=== PATIENT | male | born 1950 | race Caucasian/White ===

== ENCOUNTER 2017-08-09 15:55 | Emergency (ER) | payer OTHER, MEDICARE ==
[~2017-08-09] VITALS: Ht 185.4 cm; Wt 95.0 kg
[~2017-08-09 15:55] MED LIST: MULT-506 PO; PRED1SUS3 OPR; SILD100T PO; SNM/25100 PO
[2017-08-09 16:11] VITALS: Ht 185.4 cm; Wt 95.0 kg
[2017-08-09] MEDS ORDERED: SODIUM CHLORIDE 0.9% 1000ML 1,000 ML IV STA (16:26)
[2017-08-09 16:32] VITALS: O2SAT 97
[2017-08-09 16:38] LABS: BASO % 0.9 %; BASO ABS # 0.06 K/uL (0-0.2); EOS % 1.1 %; EOS ABS # 0.07 K/uL (0-0.5); HEMATOCRIT 43.1 % (42-52); HEMOGLOBIN 14.7 g/dL (14.0-18.0); IG# 0.01 K/uL (0.00-0.02); LYMPH % 21.4 %; LYMPH ABS # 1.36 K/uL (1.2-3.4); MEAN CELL VOLUME 91.5 fL (80-100); MEAN CORPUSCULAR HEMOGLOBIN 31.2 pg (25-34); MEAN CORPUSCULAR HGB CONC 34.1 g/dl (32-36); MEAN PLATELET VOLUME 9.9 fL (7.4-10.4); MONO % 7.1 %; MONO ABS # 0.45 K/uL (0.11-0.59); NEUT % 69.3 %; NEUT ABS # 4.42 K/uL (1.4-6.5); PLATELET COUNT 261 K/uL (130-400); RED CELL DISTRIBUTION WIDTH CV 12.9 % (11.5-14.5); RED CELL DISTRIBUTION WIDTH SD 43.2 fL (36.4-46.3); WHITE BLOOD COUNT 6.37 K/uL (4.8-10.8)
--- NOTE | 2017-08-09 17:11 | DIAGNOSTIC IMAGING REPORT ---
HEAD WITHOUT CONTRAST (CT) CLINICAL HISTORY: 66 years-old Male presenting with confusion, possible overdose. TECHNIQUE: Multidetector CT imaging of the head was performed without the use of intravenous contrast. IV contrast: None. A dose lowering technique was used consistent with the principles of ALARA (as low as reasonably achievable). COMPARISON: None. CT DOSE (mGy.cm): The estimated cumulative dose is 724.83 mGy.cm. 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 Proportional ventricular and sulcal prominence, likely age-related parenchymal volume loss. Brain parenchyma normal in appearance with preserved egan-white differentiation. No mass effect or midline shift. No hemorrhage or acute territorial infarct. No extra-axial fluid collection. Paranasal sinuses and mastoid air cells clear. Calvarium intact. IMPRESSION: 1. No acute intracranial abnormality. Electronically signed by: King Ryan M.D. 08/09/2017 5:10 PM Dictated Date/Time: 08/09/2017 5:09 PM
[2017-08-09 17:24] LABS: ALBUMIN 3.9 gm/dl (3.4-5.0); ALT/SGPT 8 U/L (12-78); BLOOD UREA NITROGEN 28 mg/dl (7-18); CALCIUM 8.9 mg/dl (8.5-10.1); CARBON DIOXIDE 31 mmol/L (21-32); CREATININE 0.91 mg/dl (0.60-1.40); GLUCOSE 113 mg/dl (70-99); LIPASE 131 U/L (73-393); POTASSIUM 4.1 mmol/L (3.5-5.1); SODIUM 137 mmol/L (136-145)
[2017-08-09 17:35] LABS: ALKALINE PHOSPHATASE 62 U/L (45-117); AST/SGOT 13 U/L (15-37); TOTAL PROTEIN 6.4 gm/dl (6.4-8.2)
--- NOTE | 2017-08-09 17:36 | DIAGNOSTIC IMAGING REPORT ---
ABDOMEN 2VIEW W/PA CHEST RTN CLINICAL HISTORY: 66 years-old Male presenting with ingestion, vomiting. TECHNIQUE: PA view of the chest and supine and left lateral decubitus views of the abdomen were obtained. COMPARISON: None. FINDINGS: Atherosclerosis of the aortic arch. Cardiac silhouette normal in size. Minimal left basilar opacity. No other focal opacity. No large effusion or pneumothorax. Nonobstructive bowel gas pattern. Moderate stool burden throughout the colon. Marked stool burden in the rectum. No gross pneumoperitoneum. Evaluation of the renal shadows for calculi is limited in the presence of such large stool burden. Degenerative changes of the spine. IMPRESSION: 1. No acute cardiopulmonary disease. 2. Stool burden consistent with constipation. No bowel obstruction or free air. Electronically signed by: King Ryan M.D. 08/09/2017 5:35 PM Dictated Date/Time: 08/09/2017 5:32 PM
[2017-08-09] MEDS ORDERED: OPTIRAY 320 IV PRN (18:30)
--- NOTE | 2017-08-09 19:07 | DIAGNOSTIC IMAGING REPORT ---
ABD/PELVIS IV CONTRAST ONLY CLINICAL HISTORY: 66 years-old Male presenting with n/v. TECHNIQUE: Multidetector CT of the abdomen and pelvis was performed after the administration of intravenous contrast. IV contrast: 93 mL of Optiray 320. A dose lowering technique was used consistent with the principles of ALARA (as low as reasonably achievable). COMPARISON: None. CT DOSE (mGy.cm): The estimated cumulative dose is 596.06 mGy.cm. 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 Image quality is degraded by positioning of the arms at the patient's sides. Lung bases: Patchy groundglass opacities at the lung bases. Mild smooth interlobular septal thickening. Normal heart size. No pericardial or pleural effusion. Liver: Normal morphology. Multiple well-defined hypodense liver lesions, indeterminate but possibly hepatic cysts or hamartomas. Patent hepatic vasculature. Biliary: No intrahepatic or extrahepatic biliary ductal dilatation. Normal gallbladder. Pancreas: Normal. Spleen: Normal. Adrenal glands: Normal. Kidneys and ureters: Normal. No hydronephrosis. Evaluation of the mid to distal ureters limited. Bladder: Normal. Pelvic organs: Prostate enlargement likely secondary to benign prostatic hyperplasia. Bowel: Moderate stool burden throughout normal caliber colon. Limited diverticulosis of the proximal sigmoid and descending colon. Motion artifact in the upper abdomen degrades evaluation. The appendix is normal. No bowel obstruction. Mild thickening of the gastric antrum suggested. No perigastric inflammatory change. Peritoneal cavity: No free fluid or intraperitoneal gas. Lymph nodes: No enlarged lymph nodes in the abdomen or pelvis. Vasculature: Atherosclerosis of the normal caliber abdominal aorta. IVC patent. Abdominal wall: Small fat-containing umbilical hernia. Musculoskeletal: Degenerative changes of the spine. Osteopenia. Anterior vertebral body height loss of T12 as well as anterior vertebral body height loss and superior endplate concavity of L3. IMPRESSION: 1. Moderate stool burden consistent with constipation. 2. Thickening of the gastric antrum suggests mild gastritis. 3. Patchy groundglass opacities at the lung bases with mild smooth interlobular septal thickening. This could represent developing pulmonary edema or an infectious or inflammatory etiology. 4. Multiple well-defined hypodense liver lesions, which are indeterminate but may represent hepatic cysts or hamartomas. 5. Deformities of T12 and L3, age indeterminate compression fractures. Correlate with point tenderness. 6. Osteopenia. Electronically signed by: King Ryan M.D. 08/09/2017 7:06 PM Dictated Date/Time: 08/09/2017 7:00 PM
[2017-08-09] MEDS ORDERED: CEFTRIAXONE SOD INJ 1 GM ADDVIAL IV STA (20:12)
[2017-08-09] MEDS ORDERED: AZITHROMYCIN 250 MG TAB PO ONE (20:15)
--- NOTE | 2017-08-09 21:07 | DIAGNOSTIC IMAGING REPORT ---
THORACIC SPINE 3 VIEWS ROUTINE CLINICAL HISTORY: 66 years-old Male presenting with fall, pain. TECHNIQUE: 3 views of the thoracic spine were obtained. COMPARISON: None. FINDINGS: Dextrocurvature of the thoracic spine. Osteopenia suspected. Scoliotic curvature limits evaluation for vertebral body height loss. Allowing for this, vertebral body height loss suspected at T8. The compression deformity evident at T12 on CT is not well demonstrated on the current radiographs. Remaining vertebral bodies demonstrate normal height and alignment. Intervertebral disc spaces grossly maintained. Visualized portion of the thorax within normal limits apart from atherosclerosis. IMPRESSION: 1. Allowing for dextroscoliotic curvature of the thoracic spine, suggestion of vertebral body height loss at T8 with osteopenia. This could potentially represent an age-indeterminate compression deformity. 2. Compression deformity at T12 is not well demonstrated on the current radiographs. Electronically signed by: King Ryan M.D. 08/09/2017 9:06 PM Dictated Date/Time: 08/09/2017 9:02 PM
--- NOTE | 2017-08-09 21:35 | EMERGENCY ROOM VISIT NOTE ---
History Report prepared by Violeta: Krystle Grullon Under the Supervision of: Dr. Delphine Silva D.O. First contact with patient: 16:03 Chief Complaint: OVERDOSE (ACCIDENTAL) Stated Complaint: OVERDOSE History of Present Illness The patient is a 66 year old male who presents to the Emergency Room with complaints of a possible accidental overdose between 3-6 hours ago. The patient presents to the ED by EMS. He vomited multiple times in route. He was given Zofran in route. The patient's states that she had gone upstairs and left the patient alone from 1000 to 1330 today. At 1330, she noticed that 25 carbidopa-levodopa pills were missing. He normally takes 1.5 pills 6 times a day. She searched the house for the pills, but was unable to find them. She then noticed that the patient seemed more confused and his speech was changed. The patient is unsure what happened to the pills and does not recall taking them. He denies any headache, chest pain, abdominal pain, SOB, nausea, urinary symptoms, or change in bowel movement. He was not sick or vomiting this morning. The patient was diagnosed with Parkinson's disease in 2014. Source of History: patient, spouse/significant other, EMS Onset: 3-6 hours ago Position: other (global) Symptom Intensity: 25 carbidopa-levodopa pills Quality: other (accidental overdose) Timing: other (episodic) Associated Symptoms: + vomiting, No headache, No chest pain, No SOB, No nausea, No abdominal pain, No urinary symptoms Review of Systems See HPI for pertinent positives & negatives. A total of 10 systems reviewed and were otherwise negative. Past Medical & Surgical Medical Problems: (1) Parkinson's disease Family History No pertinent family history stated. Social History Smoking Status: Never Smoker Marital Status: Housing Status: lives with significant other Occupation Status: retired Current/Historical Medications Scheduled Azithromycin (Zithromax), 250 MG PO DAILY Levodopa/Carbidopa (Sinemet 25MG/100MG), 1.5 TABS PO TID Multivitamin (Multivitamin), 1 TAB PO QAM Allergies Coded Allergies: Penicillins (Verified Allergy, Unknown, RASH, 01/30/16) Physical Exam Vital Signs Date Time Temp Pulse Resp B/P (MAP) Pulse Ox O2 Delivery O2 Flow Rate FiO2 08/10/17 00:20 36.7 85 19 126/78 93 08/10/17 00:20 62 121/73 95 08/09/17 22:33 85 126/78 93 Room Air 08/09/17 20:36 59 97 08/09/17 20:31 129/78 08/09/17 20:14 60 99 08/09/17 20:00 129/93 08/09/17 19:44 84 19 99 08/09/17 19:43 91 08/09/17 19:42 153/95 08/09/17 19:42 82 17 153/95 99 Room Air 08/09/17 18:44 49 21 137/83 99 08/09/17 18:43 48 18 137/83 99 Room Air 08/09/17 18:39 49 19 99 08/09/17 18:09 48 13 99 08/09/17 18:04 131/74 99 08/09/17 16:32 97 Room Air 08/09/17 16:25 47 17 08/09/17 16:15 54 08/09/17 16:11 36.7 51 18 118/72 97 Room Air 08/09/17 16:03 118/72 99 Physical Exam GENERAL: alert, well appearing, well nourished, no distress, non-toxic EYE EXAM: normal conjunctiva, PERRL and EOM's grossly intact OROPHARYNX: no exudate, no erythema, lips, buccal mucosa, and tongue normal and mucous membranes are moist NECK: supple, no nuchal rigidity, no adenopathy, non-tender LUNGS: Clear to auscultation. Normal chest wall mechanics HEART: regular, but bradycardic. No murmurs, S1 normal and S2 normal ABDOMEN: abdomen soft, non-tender, normo-active bowel sounds, no masses, no rebound or guarding. BACK: Back is symmetrical on inspection and there is no deformity, no midline tenderness, no CVA tenderness. SKIN: no rashes and no bruising UPPER EXTREMITIES: upper extremities are grossly normal. LOWER EXTREMITIES: No pitting edema. NEURO EXAM: Oriented, but confused regarding recent events. Poor short term memory recall. Occasional slurring of words. No gross weakness of arms, no gross weakness of legs. No ataxia. No facial droop. Medical Decision & Procedures ER Provider Diagnostic Interpretation: Xray results have been interpreted by the radiologist and by me. Radiology results have been interpreted by the radiologist and reviewed by me. ABDOMEN 2VIEW W/PA CHEST RTN CLINICAL HISTORY: 66 years-old Male presenting with ingestion, vomiting. TECHNIQUE: PA view of the chest and supine and left lateral decubitus views of the abdomen were obtained. COMPARISON: None. FINDINGS: Atherosclerosis of the aortic arch. Cardiac silhouette normal in size. Minimal left basilar opacity. No other focal opacity. No large effusion or pneumothorax. Nonobstructive bowel gas pattern. Moderate stool burden throughout the colon. Marked stool burden in the rectum. No gross pneumoperitoneum. Evaluation of the renal shadows for calculi is limited in the presence of such large stool burden. Degenerative changes of the spine. IMPRESSION: 1. No acute cardiopulmonary disease. 2. Stool burden consistent with constipation. No bowel obstruction or free air. Electronically signed by: King Ryan M.D. 08/09/2017 5:35 PM Dictated Date/Time: 08/09/2017 5:32 PM THORACIC SPINE 3 VIEWS ROUTINE CLINICAL HISTORY: 66 years-old Male presenting with fall, pain. TECHNIQUE: 3 views of the thoracic spine were obtained. COMPARISON: None. FINDINGS: Dextrocurvature of the thoracic spine. Osteopenia suspected. Scoliotic curvature limits evaluation for vertebral body height loss. Allowing for this, vertebral body height loss suspected at T8. The compression deformity evident at T12 on CT is not well demonstrated on the current radiographs. Remaining vertebral bodies demonstrate normal height and alignment. Intervertebral disc spaces grossly maintained. Visualized portion of the thorax within normal limits apart from atherosclerosis. IMPRESSION: 1. Allowing for dextroscoliotic curvature of the thoracic spine, suggestion of vertebral body height loss at T8 with osteopenia. This could potentially represent an age-indeterminate compression deformity. 2. Compression deformity at T12 is not well demonstrated on the current radiographs. Electronically signed by: King Ryan M.D. 08/09/2017 9:06 PM Dictated Date/Time: 08/09/2017 9:02 PM HEAD WITHOUT CONTRAST (CT) CLINICAL HISTORY: 66 years-old Male presenting with confusion, possible overdose. TECHNIQUE: Multidetector CT imaging of the head was performed without the use of intravenous contrast. IV contrast: None. A dose lowering technique was used consistent with the principles of ALARA (as low as reasonably achievable). COMPARISON: None. CT DOSE (mGy.cm): The estimated cumulative dose is 724.83 mGy.cm. 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 Proportional ventricular and sulcal prominence, likely age-related parenchymal volume loss. Brain parenchyma normal in appearance with preserved egan-white differentiation. No mass effect or midline shift. No hemorrhage or acute territorial infarct. No extra-axial fluid collection. Paranasal sinuses and mastoid air cells clear. Calvarium intact. IMPRESSION: 1. No acute intracranial abnormality. Electronically signed by: King Ryan M.D. 08/09/2017 5:10 PM Dictated Date/Time: 08/09/2017 5:09 PM ABD/PELVIS IV CONTRAST ONLY CLINICAL HISTORY: 66 years-old Male presenting with n/v. TECHNIQUE: Multidetector CT of the abdomen and pelvis was performed after the administration of intravenous contrast. IV contrast: 93 mL of Optiray 320. A dose lowering technique was used consistent with the principles of ALARA (as low as reasonably achievable). COMPARISON: None. CT DOSE (mGy.cm): The estimated cumulative dose is 596.06 mGy.cm. 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 Image quality is degraded by positioning of the arms at the patient's sides. Lung bases: Patchy groundglass opacities at the lung bases. Mild smooth interlobular septal thickening. Normal heart size. No pericardial or pleural effusion. Liver: Normal morphology. Multiple well-defined hypodense liver lesions, indeterminate but possibly hepatic cysts or hamartomas. Patent hepatic vasculature. Biliary: No intrahepatic or extrahepatic biliary ductal dilatation. Normal gallbladder. Pancreas: Normal. Spleen: Normal. Adrenal glands: Normal. Kidneys and ureters: Normal. No hydronephrosis. Evaluation of the mid to distal ureters limited. Bladder: Normal. Pelvic organs: Prostate enlargement likely secondary to benign prostatic hyperplasia. Bowel: Moderate stool burden throughout normal caliber colon. Limited diverticulosis of the proximal sigmoid and descending colon. Motion artifact in the upper abdomen degrades evaluation. The appendix is normal. No bowel obstruction. Mild thickening of the gastric antrum suggested. No perigastric inflammatory change. Peritoneal cavity: No free fluid or intraperitoneal gas. Lymph nodes: No enlarged lymph nodes in the abdomen or pelvis. Vasculature: Atherosclerosis of the normal caliber abdominal aorta. IVC patent. Abdominal wall: Small fat-containing umbilical hernia. Musculoskeletal: Degenerative changes of the spine. Osteopenia. Anterior vertebral body height loss of T12 as well as anterior vertebral body height loss and superior endplate concavity of L3. IMPRESSION: 1. Moderate stool burden consistent with constipation. 2. Thickening of the gastric antrum suggests mild gastritis. 3. Patchy groundglass opacities at the lung bases with mild smooth interlobular septal thickening. This could represent developing pulmonary edema or an infectious or inflammatory etiology. 4. Multiple well-defined hypodense liver lesions, which are indeterminate but may represent hepatic cysts or hamartomas. 5. Deformities of T12 and L3, age indeterminate compression fractures. Correlate with point tenderness. 6. Osteopenia. Electronically signed by: King Ryan M.D. 08/09/2017 7:06 PM Dictated Date/Time: 08/09/2017 7:00 PM Laboratory Results 08/09/17 16:30 Red Blood Count 4.71, Mean Corpuscular Volume 91.5, Mean Corpuscular Hemoglobin 31.2, Mean Corpuscular Hemoglobin Concent 34.1, Mean Platelet Volume 9.9, Neutrophils (%) (Auto) 69.3, Lymphocytes (%) (Auto) 21.4, Monocytes (%) (Auto) 7.1, Eosinophils (%) (Auto) 1.1, Basophils (%) (Auto) 0.9, Neutrophils # (Auto) 4.42, Lymphocytes # (Auto) 1.36, Monocytes # (Auto) 0.45, Eosinophils # (Auto) 0.07, Basophils # (Auto) 0.06 08/09/17 16:39 Test 08/09/17 16:30 08/09/17 16:39 08/09/17 17:40 08/09/17 22:50 White Blood Count 6.37 K/uL (4.8-10.8) Red Blood Count 4.71 M/uL (4.7-6.1) Hemoglobin 14.7 g/dL (14.0-18.0) Hematocrit 43.1 % (42-52) Mean Corpuscular Volume 91.5 fL (80-100) Mean Corpuscular Hemoglobin 31.2 pg (25-34) Mean Corpuscular Hemoglobin Concent 34.1 g/dl (32-36) Platelet Count 261 K/uL (130-400) Mean Platelet Volume 9.9 fL (7.4-10.4) Neutrophils (%) (Auto) 69.3 % Lymphocytes (%) (Auto) 21.4 % Monocytes (%) (Auto) 7.1 % Eosinophils (%) (Auto) 1.1 % Basophils (%) (Auto) 0.9 % Neutrophils # (Auto) 4.42 K/uL (1.4-6.5) Lymphocytes # (Auto) 1.36 K/uL (1.2-3.4) Monocytes # (Auto) 0.45 K/uL (0.11-0.59) Eosinophils # (Auto) 0.07 K/uL (0-0.5) Basophils # (Auto) 0.06 K/uL (0-0.2) RDW Standard Deviation 43.2 fL (36.4-46.3) RDW Coefficient of Variation 12.9 % (11.5-14.5) Immature Granulocyte % (Auto) 0.2 % Immature Granulocyte # (Auto) 0.01 K/uL (0.00-0.02) Acetaminophen Level < 2 ug/ml (10-30) Anion Gap 6.0 mmol/L (3-11) Est Creatinine Clear Calc Drug Dose 89.0 ml/min Estimated GFR () 100.7 Estimated GFR (Non- 86.9 BUN/Creatinine Ratio 31.2 (10-20) Calcium Level 8.9 mg/dl (8.5-10.1) Magnesium Level 2.4 mg/dl (1.8-2.4) Total Bilirubin 0.7 mg/dl (0.2-1) Aspartate Amino Transf (AST/SGOT) 13 U/L (15-37) Alanine Aminotransferase (ALT/SGPT) 8 U/L (12-78) Alkaline Phosphatase 62 U/L (45-117) Ammonia 10.0 umol/L (11-32) Troponin I < 0.015 ng/ml (0-0.045) Total Protein 6.4 gm/dl (6.4-8.2) Albumin 3.9 gm/dl (3.4-5.0) Globulin 2.5 gm/dl (2.5-4.0) Albumin/Globulin Ratio 1.6 (0.9-2) Lipase 131 U/L (73-393) Thyroid Stimulating Hormone (TSH) 0.498 uIu/ml (0.300-4.500) Ethyl Alcohol mg/dL < 3.0 mg/dl (0-3) Prothrombin Time 10.7 SECONDS (9.0-12.0) Prothromb Time International Ratio 1.0 (0.9-1.1) Urine Color YELLOW Urine Appearance CLEAR (CLEAR) Urine pH 8.0 (4.5-7.5) Urine Specific [place] > 1.045 (1.000-1.030) Urine Protein NEG (NEG) Urine Glucose (UA) NEG (NEG) Urine Ketones TRACE (NEG) Urine Occult Blood NEG (NEG) Urine Nitrite NEG (NEG) Urine Bilirubin NEG (NEG) Urine Urobilinogen NEG (NEG) Urine Leukocyte Esterase NEG (NEG) Urine Opiates Screen NEG (NEG) Urine Methadone, Qualitative NEG (NEG) Urine Barbiturates NEG (NEG) Urine Phencyclidine (PCP) Level NEG (NEG) Ur Amphetamine/Methamphetamine NEG (NEG) MDMA (Ecstasy) Screen NEG (NEG) Urine Benzodiazepines Screen NEG (NEG) Urine Cocaine Metabolite NEG (NEG) Urine Marijuana (THC) NEG (NEG) Laboratory results per my review. Medications Administered Medications (Trade) Dose Ordered Sig/Layne Route Start Time Stop Time Status Last Admin Dose Admin Sodium Chloride 1,000 ml @ 125 mls/hr Q8H STAT IV 08/09/17 16:26 08/10/17 00:25 DC 08/09/17 16:40 125 MLS/HR Ceftriaxone Sodium (Rocephin Inj) 1 gm NOW STAT IV 08/09/17 20:12 08/09/17 20:15 DC 08/09/17 20:32 1 GM Azithromycin (Zithromax Tab) 500 mg NOW ONCE PO 08/09/17 20:15 08/09/17 20:16 DC 08/09/17 20:33 500 MG ECG Indication: toxicologic Rate (beats per minute): 48 Rhythm: sinus bradycardia Findings: no acute ischemic change, left axis deviation, no ectopy, other ( normal intervals) Change: EKG: Patient's electrocardiogram per my interpretation. ED Course 1608: The patient was evaluated in room A3. A complete history and physical exam was performed. 1622: I discussed the patient's case with Poison Control. They say there is nothing else to add and recommend supportive care. 1626: NSS 1000 ml @ 125 mls/hr IV. 1628: Review of EMR shows that the patient has previously been bradycardic, down as low as 45, but mostly in the 50-60s. Patient was 70-80 at previous PCP office visits. 1811: I reevaluated the patient. He is resting comfortably. Heart rate is 49. I updated on results. 1950: I reevaluated the patient. I was notified that the patient fell in bathroom. Repeat physical exam shows no evidence of trauma. He states he has mild back pain. There is no ecchymosis, no tenderness on palpation. Ambulatory pulse ox was 91. Tolerating sips PO. 2011: Rocephin Inj 1 gm IV. 2014: Azithromycin 500 mg PO. 2121: I reevaluated the patient. 2224: I reevaluated the patient. I spoke with case management who will evaluate the patient. 2231: The patient was evaluated by the embedded case manager. She will try to arrange for the patient to go to [facility]. 2354: I reevaluated the patient. wants to take him home after multiple discussions with myself and case management. I discussed the findings and the treatment plan with her. She verbalizes agreement and understanding. He was discharged home. Medical Decision Differential diagnosis: Etiologies such as toxicologic, infection, hypoglycemia, electrolyte abnormalities, cardiac sources, intracerebral event, neurologic, as well as others were entertained. Extensive time spent doing bedside rechecks of the patient and discussion with family at bedside as well as with case management. Patient's mild confusion improved here as did his initial bradycardia which I feel is most likely vagally mediated due to his vomiting. Patient no additional recurrent vomiting here was tolerating by mouth. Patient with no focal neuro deficits I do not believe he suffered a stroke or has an occult EVALUATION ASSISTANT infection. Additional imaging of the patient otherwise unremarkable for any GI source of his vomiting. I did not feel he had any complications related to a possible accidental overdose of his levodopa. This was discussed with poison control and his initial presentation. Patient's labs otherwise reassuring. Concern given his ability to ambulate at home and fall risk, as well as his 's concern for her ability to continue to care for him at home. We did discuss and attempted to place the patient in [facility] for some short-term rehabilitation, however 2 locations were checked and were unavailable. After additional bedside conversation with the embedded case manager's and an additional ambulatory trial here, the then decided that she was careful taking the patient home and will follow-up with his family doctor and try to arrange for additional rehabilitation as an outpatient. Patient had no dysrhythmia while monitored on telemetry here, I do not suspect any underlying cardiac etiology. Patient hemodynamically stable, no evidence of bacteremia/sepsis. Patient with known Parkinson's that is likely slowly progressing which could lead to his ambulatory dysfunction. I did not feel patient clinically had pneumonia despite suggestion of possible pneumonia on CAT scan. Nothing originally noted on chest x-ray patient with no cough or cold symptoms, no leukocytosis and no fevers. However given age and CT findings, patient covered for possible community-acquired pneumonia. Patient not otherwise immunocompromised no recent hospitalization, and unlikely healthcare associated pneumonia as patient is from home. Medication Reconcilliation Current Medication List: was personally reviewed by me Blood Pressure Screening Patient's blood pressure: Elevated blood pressure Blood pressure disposition: Referred to PCP Impression Primary Impression: Transient confusion Additional Impressions: Bradycardia Pneumonia Fall Vomiting Scribe Attestation The scribe's documentation has been prepared under my direction and personally reviewed by me in its entirety. I confirm that the note above accurately reflects all work, treatment, procedures, and medical decision making performed by me. Departure Information Dispostion Home / Self-Care Prescriptions Azithromycin (Zithromax) 250 Mg Tab 250 MG PO DAILY, #4 TAB Prov: Delphine Silva, 08/10/17 Referrals Kemal Rodriguez, D.OEverette (PCP) Patient Instructions My [facility] Additional Instructions Please take your medications only as prescribed. Please take the antibiotics as prescribed and follow closely with her family doctor the beginning of the week. You may eat and drink normally. If you develop any worsening cough or trouble breathing, develop fevers or chills, recurrent vomiting, diarrhea, dizziness, chest pain, or you have any other new or concerning symptoms, please return to the emergency room. Problem Qualifiers Additional Impressions: Pneumonia Pneumonia type: due to unspecified organism Laterality: bilateral Lung location: lower lobe of lung Qualified Codes: J18.9 - Pneumonia, unspecified organism Fall Encounter type: initial encounter Qualified Codes: W19.XXXA - Unspecified fall, initial encounter Vomiting Vomiting type: unspecified Vomiting Intractability: non-intractable Nausea presence: without nausea Qualified Codes: R11.11 - Vomiting without nausea
[2017-08-10] MEDS ORDERED: AZIT250T PO (00:12)
[2017-08-10 00:20] VITALS: BP 121/73; PULSE 62; TEMP 36.7; O2SAT 95
== END 2017-08-10 01:00 | disposition home or self-care (01) ==
LOC: EDBD 15:55 → C.EDA 15:57
DX: R41.0 Disorientation, unspecified (principal); R00.1 Bradycardia, unspecified; J18.9 Pneumonia, unspecified organism; W18.30XA Fall on same level, unspecified, initial encounter; Y92.231 Patient bathroom in hospital as the place of occurrence of the external cause; R11.10 Vomiting, unspecified; G20 Parkinson's disease